=== PATIENT | female | born 1945 | race Asian ===

== ENCOUNTER 2022-02-02 03:29 | Emergency (ER) | payer MEDICARE ==
[~2022-02-02] VITALS: Ht 157.5 cm; Wt 63.6 kg
[2022-02-02 04:05] LABS: COVID AG,FIA SOURCE NASOPHARYNGEAL
[2022-02-02 04:27] LABS: INFLUENZA TYPE A NEGATIVE FOR TYPE A (NEGATIVE); INFLUENZA TYPE B NEGATIVE FOR TYPE B (NEGATIVE)
[2022-02-02 06:41] VITALS: BP 132/65
== END 2022-02-02 07:57 | disposition home or self-care (01) ==
LOC: EMS 03:37 → EDBD 03:37 → EMS 07:57
DX: U07.1 COVID-19 (principal); E11.9 Type 2 diabetes mellitus without complications; I10 Essential (primary) hypertension
CPT/HCPCS: 71046; 82962; 87804; 99284